=== PATIENT | female | born 1985 | race Two or more races ===

== ENCOUNTER 2022-05-07 09:32 | Emergency (ER) | payer OTHER, MEDICAID, SELFPAY ==
--- NOTE | ~2022-05-07 | XR_ITS ---
EXAMINATION: XR CHEST CLINICAL INFORMATION: Shortness of breath COMPARISON: None TECHNIQUE: 2 views of the chest were obtained. FINDINGS: The lungs are clear. There is no pneumothorax, airspace consolidation, or groundglass opacity. The costophrenic sulci are clear. The heart is normal in size. The hilar and mediastinal contours are unremarkable. No acute bony abnormality. XR/XR chest 2V IMPRESSION: Unremarkable examination.
[2022-05-07 10:05] VITALS: BP 149/92; PULSE 87; RESP 18; TEMP 36.8; O2SAT 100; BMI 42.0
[2022-05-07 11:17] LABS: Influenza A PCR NEGATIVE (Negative); Influenza B PCR NEGATIVE (Negative); Resp Syncy Virus RNA Qual PCR NEGATIVE (Negative); SARS COV2 PCR INHOUSE NEGATIVE (Negative)
[2022-05-07 12:07] VITALS: BP 153/105; PULSE 81; RESP 16; TEMP 36.8; O2SAT 100
--- NOTE | 2022-05-07 12:27 | ED_ITS ---
HPI - SOB/Dyspnea General Chief Complaint: Dyspnea Stated Complaint: SOB Time Seen by Provider: 05/07/22 12:09 Source: patient Mode of arrival: ambulatory Limitations: no limitations History of Present Illness HPI Narrative: Patient is a 37-year-old female who presents to emergency department for evaluation of shortness of breath. She states that she was having difficulty sleeping last night and she woke gasping for air. Today she has had intermittent shortness of breath. Denies any sick contacts fevers, chills, nasal congestion, cough chest pain, dyspnea on exertion. She reports a history of sleep apnea, for which she has used a CPAP in the past. However she states that she has not used it in a couple of years, states that it was taken away from her due to noncompliance. Reports that she has not seen a sleep medicine specialist in a couple of years, last saw her primary care provider a few months ago. Denies history of DVT/PE, personal history of malignancy, tobacco usage, oral contraceptive usage, recent surgery or prolonged immobilization. Related Data Allergies Allergy/AdvReac Type Severity Reaction Status Date / Time latex Allergy Intermediate Hives Verified 05/07/22 10:05 Review of Systems Review of Systems: Constitutional: No weight loss, fever, chills, weakness or fatigue. Skin: No rash or itching. Cardiovascular: No chest pain, chest pressure or chest discomfort. No palpitati ons or pedal edema. Respiratory: As noted in HPI Gastrointestinal: No anorexia, nausea, vomiting or diarrhea. No abdominal pain or blood in stool. Genitourinary: No burning micturition. No urinary frequency or incontinence. Musculoskeletal: No muscle pain, back pain, joint pain or stiffness. Psychiatric: No depression or anxiety. Yes all other systems are reviewed and are negative [facility] Past Medical History Attestation statement: The following information was validated with the patient. Source: old records reviewed Social History Social History Advance Directives: No Advance Directives Information Provided: No Physical Exam Vital Signs: Vital Signs: Last Vital Signs Temp 98.3 F 05/07/22 12:07 Pulse 85 05/07/22 12:38 Resp 16 05/07/22 12:38 BP 138/68 05/07/22 12:38 Pulse Ox 100 05/07/22 12:38 O2 Del Method 05/07/22 12:38 BMI result Body Mass Index 42.0 Appearance: Alert.?Oriented to person, place and time. No acute distress .?Normal affect. Eyes: Pupils equal, round and reactive to light.? ENT: Pharynx normal.?? Neck: Normal inspection.? Neck supple.?? CVS: Heart sounds normal. Normal heart rate and rhythm.? Pulses normal.?? Respiratory: No respiratory distress.? Lung sounds clear to auscultation bilaterally?? Abdomen: Soft and non-tender. Normoactive bowel sounds. Skin: Skin warm and dry.? Normal skin color.? ?? Extremities: No lower extremity edema.? No calf ttp? Neuro: Moves all extremities spontaneously. Sensation intact bilaterally. No focal neuro deficits. Ambulates with normal steady gait. Medical Decision Making Medical Decision Making MDM Narrative: Patient is a 29-year-old female with reported past medical history of obstructive sleep apnea, currently not on CPAP, presenting to the emergency department for evaluation of apnea at night. Denies recent sick contacts, testing for COVID-19, influenza, RSV today are negative. Reviewed chest x-ray obtained from initial triage, without evidence of pneumonia. She is afebrile, without tachycardia, tachypnea or hypoxia. No respiratory distress. PERC negative, low suspicion for pulmonary embolism. Discussed with patient that symptoms are most consistent with SYLVAIN, advised that she should follow-up with her prior sleep medicine doctor, if she is unable to obtain a visit with them due to length of time since last evaluation she will likely require a referral from her primary care doctor. Advised to contact her primary care doctor's office today to arrange for follow-up. Advised that she may return to emergency department with any new or worsening symptoms or concerns. Patient verbalized understanding. She is stable for discharge from the emergency room. Differential Diagnosis Differential Diagnoses: The differential diagnosis associated with the presentation includes (As noted above) Lab Data MDM Lab Attestation statement: I reviewed the patient's lab results. Labs: Lab Results 05/07/22 Range/Units 10:28 Influenza Type A (PCR) NEGATIVE (Negative) Influenza Type B (PCR) NEGATIVE (Negative) RSV RNA Qual (PCR) NEGATIVE (Negative) SARS-CoV-2 RNA (RT-PCR) NEGATIVE (Negative) Independent Interpretation I performed an independent interpretation of an: Plain X-Ray Interpretation: I have person turbid chest x-ray and agree with the radiologist impression, does not appear to have any consolidations or infiltrates, not consistent with pneumonia. Radiology Impression Discussion of test interpretation with radiology: I have reviewed the radiologist's reading. Radiologist Impression: XR/XR chest 2V IMPRESSION: Unremarkable examination. Tests considered The following testing was considered but not selected: Considered CT angio of the chest for evaluation of pulmonary embolism, however using decision making tool, PERC negative, chest CT was deferred Chronic Conditions Patient?s care impacted by: Other (Obstructive sleep apnea) Discharge Plan Discharge Clinical Impression: Obstructive sleep apnea Patient Disposition: Home, Self-Care Instructions: Sleep Apnea (DC) Additional Instructions: As we discussed, it is very important that you follow-up with your sleep medicine doctor/primary care provider to arrange for management with CPAP as you have had in the past. Today or testing for COVID-19 and flu were negative. Your chest x-ray does not show evidence of pneumonia. You may return to the emergency department with any new or worsening symptoms or concerns. This includes but is not limited to worsening shortness of breath, difficulty breathing, chest pain, palpitations, dizziness, lightheadedness, confusion, numbness or tingling of your arms/legs. Referrals: Physician,Unknown J [Primary Care Provider] - Interventions: ED Discharge Assessment Last Done: 05/07/22 13:28 Discharge Date/Time: 05/07/22 13:29
[2022-05-07 12:38] VITALS: BP 138/68; PULSE 85; RESP 16; O2SAT 100
== END 2022-05-07 13:29 | disposition home or self-care (01) ==
PROVIDERS: Emergency Provider Emergency Medicine
DX: G47.33 Obstructive sleep apnea (adult) (pediatric) (principal); R06.02 Shortness of breath; Z20.828 Contact with and (suspected) exposure to other viral communicable diseases; Z91.199 Patient's noncompliance with other medical treatment and regimen due to unspecified reason
CPT/HCPCS: 0241U; 71046; 99283

== ENCOUNTER 2022-12-02 09:56 | Outpatient (AMB) | payer OTHER, MEDICAID, SELFPAY ==
--- NOTE | 2022-12-02 10:12 | MHC.OFFWIV ---
Intake Vital Signs 12/02/22 10:18 BP 118/76 Blood Pressure Location Lt brachial Position Sitting Pulse 86 Pulse Source Pulse Oximeter Temp 98.7 F Temp Source Temporal Artery Scan Pulse Oximetry (%) 97 Oxygen Delivery Method Room Air Intake Visit Reasons: headache, ear pain (both) [phone] Intake Note: Patient here for body aches, congestion, runny nose, nausea and light headed. Patient Tobacco Use Status: Never used Tobacco Allergies latex Allergy (Intermediate, Verified 05/07/22 10:05) Hives Do you need a note to return to daycare/school/sports/work: Yes HPI headache, ear pain (both) [phone] HPI Details 37-year-old female patient presents today for sick visit. Reports a 4 day history of body aches, nasal congestion, dry cough. 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 Denies any fever, shortness of breath, GI symptoms. [facility] Social History Patient Tobacco Use Status: Never used Tobacco Review of Systems Const All systems reviewed & are unremarkable except as noted in HPI and below Physical Exam Const General: cooperative and no acute distress HEENT Head: Yes normal to inspection Ears: hearing grossly normal bilaterally, external ears normal and TM's normal bilaterally General nose exam: Normal external nose present, Normal nares present and Nasal discharge present mucoid Face and sinus: Yes normal facial exam Mouth: Normal oral and palatal mucosa present and moist mucous membranes Throat: Yes posterior oropharynx normal Neck Neck: Yes no lymphadenopathy Resp Effort & Inspection: normal respiratory effort, able to speak in complete sentences and Actively coughing Quality: dry Auscultation: clear to auscultation bilaterally Cardio Jugular venous distension: no JVD Palpation: normal PMI Rate: regular rate Rhythm: regular rhythm Skin General skin exam: no rashes or lesions noted Extrem General: Yes capillary refill normal and Yes no clubbing, cyanosis or edema Psych Appearance: grossly normal Mental Status: mental status grossly normal Speech and movement: Normal speech and movement present Assessment & Plan Assessment & Plan (1) Upper respiratory infection: Code(s): J06.9 - Acute upper respiratory infection, unspecified Qualifiers: URI type: unspecified viral URI Qualified Code(s): J06.9 - Acute upper respiratory infection, unspecified Plan: 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 We reviewed conservative, symptomatic treatment with rest, hydration, otc cold/flu products, Tylenol. She declines any viral testing. I will start her on Benzonate for her cough since this is most bothersome for her. Reviewed indications, use, possible s/e. If she does not improve with treatment or if new symptoms develop she can certainly return to the clinic. Medications: New benzonatate 100 mg PO BID 7 days PRN 14 caps 0RF cough R05.9 - Cough, unspecified Coding Level of Care Code Est Pt Level 3 (96174) Diagnoses Upper respiratory infection J06.9 URI type: unspecified viral URI
[2022-12-02 10:18] VITALS: BP 118/76; PULSE 86; TEMP 37.1; O2SAT 97
== END 2022-12-02 10:43 | disposition home or self-care (01) ==
PROVIDERS: Visit Provider Nurse Practitioner Family
DX: J06.9 Acute upper respiratory infection, unspecified (principal)
CPT/HCPCS: 99213

== ENCOUNTER 2023-02-05 09:35 | Outpatient (AMB) | payer MEDICAID, SELFPAY ==
[2023-02-05 10:57] VITALS: BP 120/80; PULSE 104; TEMP 36.6; O2SAT 98; BMI 44.8
--- NOTE | 2023-02-05 10:57 | AM.OFFWIN_ITS ---
Intake Vital Signs 02/05/23 10:57 Height 5 ft 4 in Weight 118.388 kg BMI 44.8 BP 120/80 Blood Pressure Location Rt brachial Position Sitting Pulse 104 H Pulse Source Pulse Oximeter Temp 97.8 F Temp Source Temporal Artery Scan Pulse Oximetry (%) 98 Intake Visit Reasons: EP, body ache, headache [phone] Intake Note: pt is here for c.o cough, headache Patient Tobacco Use Status: Never used Tobacco Allergies latex Allergy (Intermediate, Verified 02/05/23 10:58) Hives Do you need a note to return to daycare/school/sports/work: Yes HPI HPI Comments History of Present Illness Details 1113 37-year-old female presents with fatigue , malaise, dry cough, myalgias, headache (diffuse), fatigue and malaise for the past 2 days worsening. 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 Denies chest pain, shortness of breath, nausea, vomiting, abdominal pain, vision changes, dizziness and weakness. Physical exam benign neuro nonfocal. History and physical exam concerning for viral illness. Unlikely pneumonia, PE patient without risk factors. History and physical exam with low suspicion for ACS. Plan at this time will offer COVID test. Educated on supportive measures. Educated patient on diagnosis and treatment plan, answered all question, patient verbalizes understanding. At this time patient will be discharged home, advised to return with new or worsening symptoms. Educated on worrisome signs and symptoms and when to return. At this time I feel comfortable discharge home. [facility] Social History Patient Tobacco Use Status: Never used Tobacco Review of Systems Const Details: Constitutional : No Weight loss, No Fever, No Chills, + Fatigue, + Malaise ENT/Mouth : No sore throat, No Rhinorrhea Eyes: No Eye Pain, No Swelling, No Redness Cardiovascular : No Chest Pain, No SOB, No Dyspnea on Exertion, No Orthopnea, No Edema, No Palpitations Respiratory : + Cough, No Sputum, No Wheezing Gastrointestinal : No Nausea, No Vomiting, No Diarrhea, No Constipation, No abdominal Pain, No Hematochezia, No Melena Genitourinary : No Dysuria, No Urinary Frequency, No Hematuria, Musculoskeletal : No joint pain, No Myalgias, No Joint Swelling Skin : No Skin Lesions, No rash Neuro : No Weakness, No Numbness, No Dizziness, No Headache Psych : No Anxiety/Panic, No Depression All other systems reviewed and are negative All systems reviewed & are unremarkable except as noted in HPI and below Physical Exam Vital Signs: Last Vital Signs Temp 97.8 F 02/05/23 10:57 Pulse 104 H 02/05/23 10:57 BP 120/80 02/05/23 10:57 Pulse Ox 98 02/05/23 10:57 BMI result Body Mass Index 44.8 vss Appearance: Alert.? Oriented X3.? No acute distress.? Head: Normocephalic, atraumatic, no step-offs or deformities Eyes: Pupils equal, round and reactive to light.? Neck: Normal inspection.? Neck supple.? CVS: Normal heart rate and rhythm.? Pulses normal.? Respiratory: No respiratory distress.? Breath sounds normal.? Abdomen: Soft and nontender.? Skin: Skin warm and dry.? Normal skin color.? Normal skin turgor.? Extremities: No lower extremity edema.? No calf ttp. 5/5 strength to bilateral upper and lower extremities Neuro: Oriented X 3.? No motor deficit.? No sensory deficit. CN 2-12 intact Assessment & Plan Assessment & Plan (1) Viral illness: Code(s): B34.9 - Viral infection, unspecified Plan Take your medications as prescribed. If you were prescribed antibiotics today, it is important that you take your medication to their entirety, do not skip any doses, do not finish them early. Follow-up with your primary care provider this week. Return to the emergency department with new or worsening symptoms. Such as fevers, chills, chest pain, shortness of breath, nausea, vomiting, dizziness, headache, vision changes, lethargy In case of emergency call 911 Orders: Orders BinaxNOW Covid-19 Ag Today B34.9 - Viral infection, unspecified Coding Level of Care Code Est Pt Level 3 (89189) Diagnoses Viral illness B34.9
== END 2023-02-05 12:21 | disposition home or self-care (01) ==
PROVIDERS: Visit Provider Physician Assistant
DX: B34.9 Viral infection, unspecified (principal)
CPT/HCPCS: 99213

== ENCOUNTER 2023-02-05 11:21 | Outpatient (REF) | payer MEDICAID, SELFPAY ==
[2023-02-05 11:44] LABS: Binax Internal Control QC Valid; Binax Now Covid-19 Ag Negative (Negative); Binax Performed by: PAULP
== END 2023-02-05 11:22 | disposition home or self-care (01) ==
LOC: HO.CHCLDS 11:21
PROVIDERS: PCP Family Medicine; Visit Provider Physician Assistant
DX: B34.9 Viral infection, unspecified (principal)
CPT/HCPCS: 87811; C9803